=== PATIENT | male | born 1995 | race Caucasian/White ===

== ENCOUNTER 2017-04-26 22:05 | Emergency (ER) | payer SELFPAY ==
[~2017-04-26] VITALS: Ht 188 cm; Wt 61.0 kg
[2017-04-26 23:34] VITALS: BP 128/87
[2017-04-27] MEDS ORDERED: CETIRIZINE 10MG TABLET PO SCH (04:15)
[2017-04-27] MEDS ORDERED: PREDNISONE 20MG TABLET PO ONE (04:15)
== END 2017-04-27 05:07 | disposition home or self-care (01) ==
LOC: ER 22:05
DX: L50.9 Urticaria, unspecified (principal); R03.0 Elevated blood-pressure reading, without diagnosis of hypertension; J45.909 Unspecified asthma, uncomplicated
CPT/HCPCS: 99283; J7512